=== PATIENT | female | born 1960 | race Caucasian/White ===

== ENCOUNTER 2016-05-17 09:19 | Emergency (ER) | payer BC, OTHER ==
[2016-05-17 10:14] VITALS: BP 122/68
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
== END 2016-05-17 10:13 | disposition home or self-care (01) ==
LOC: ED 09:19
DX: R11.0 Nausea (principal); R51 Headache; M25.60 Stiffness of unspecified joint, not elsewhere classified; Z04.1 Encounter for examination and observation following transport accident
CPT/HCPCS: 93005; 99282

== ENCOUNTER 2018-06-02 07:49 | Emergency (ER) | payer OTHER ==
[2018-06-02 08:01] VITALS: BP 172/90
--- NOTE | 2018-06-02 08:37 | UC ---
Minor Trauma HPI - HPI Summary HPI Summary: Patient presents to urgent care status post a fall this morning. Patient states she was inside tripped over an rock marbella bucket she had put out last night. Pt states she struck her left upper leg, left frontal area, and left wrist. No LOC No blood HEENT. No cp, sob, abd pain. No n/v/d. Pt states took Motrin this am and applied ice. PT states progressive discomfort left frontal area and left hip. No difficulty with ambulation. Did not break glasses when fall. No vision changes. Pt with pain left wrist with movement. No shoulder, elbow pain. No hand pain Pt's medications reviewed this visit - History of Current Complaint Chief Complaint: UCUpperExtremity Stated Complaint: WRIST INJURY Time Seen by Provider: 06/02/18 08:01 Hx Obtained From: Patient Onset/Duration: Sudden Onset Severity Initially: Mild Severity Currently: Mild Pain Intensity: 2 - Allergies/Home Medications Allergies/Adverse Reactions: Allergies Allergy/AdvReac Type Severity Reaction Status Date / Time No Known Allergies Allergy Verified 06/02/18 08:01 Home Medications: Home Medications Metoprolol Tartrate TAB* [Lopressor TAB*] 25 mg PO DAILY 06/02/18 [History Confirmed 06/02/18] Sertraline* [Zoloft*] 50 mg PO BEDTIME 06/02/18 [History Confirmed 06/02/18] metFORMIN* [Glucophage 500 MG TAB *] 500 mg PO DAILY 06/02/18 [History Confirmed 06/02/18] PMH/Surg Hx/FS Hx/Imm Hx Previously Healthy: Yes - Surgical History Surgical History: Yes Surgery Procedure, Year, and Place: c-sectx2 - Family History Known Family History: Positive: Non-Contributory - Social History Occupation: Employed Full-time - [employer] Lives: With Family Alcohol Use: Rare Substance Use Type: None Smoking Status (MU): Never Smoked Tobacco Review of Systems All Other Systems Reviewed And Are Negative: Yes Constitutional: Positive: Fever Skin: Positive: Bruising - left forehead, left upper leg ENT: Positive: Other - left frontal area Musculoskeletal: Positive: Other: - left leg, left wrist Physical Exam - Summary Physical Exam Summary: Vital Signs Reviewed: Yes A+Ox3, no distress Eyes: Conjunctiva Clear, JERRY. EOM intact and full. no pain with palp of orbital rim. ENT: Hearing grossly normal TM x 2 clear, no hemotymp, no septal hematoma no broken teeth, mmoist, uvula midline, no exudate, no erythema. pt with mild ecchymosis left frontal area - no crepitus, no open wound, mild pain with palp Neck: Positive: Supple Respiratory: Positive: No respiratory distress, No accessory muscle use + CTA throughout no w/r Cardiovascular: RRR nl s1, s2 no m/r CBT <2 sec abd soft + BS nt/nd no guarding, no distension Musculoskeletal Exam: + abduct shoulder + flex/ext elbow + pronate/supinate; + flex/ext wrist with pain dorsum, mid wrist - no crepitus. Pt with slight click with pronation lateral wrist. no pain carpals. metacarpals, ambulatory without difficulty + flex/ext knee. ankle Neurological: Positive: Alert, + sensation throughout Psychological: Positive: Normal Response To Family Skin: Positive: no rash, + left frontal Triage Information Reviewed: Yes Vital Signs: Initial Vital Signs Temp 98.0 F 06/02/18 07:55 Pulse 71 06/02/18 07:55 Resp 16 06/02/18 07:55 BP 172/90 06/02/18 07:55 Pulse Ox 98 06/02/18 07:55 Diagnostics - Radiology No standard instances Radiology Interpretation Completed By: Radiologist - Patient Name: AN BUI Medical Record#: [id number] Ordering Physician: Yana Contreras MD Acct.#: [id number] : 1960 Age: 58 Sex: F Location: [facility] Exam Date: 06/02/18819 ADM Status: REG ER Order Information: WRIST LEFT 3+ VWS Accession Number: [id number] CPT: 87998 HISTORY: fall, pain dorsum, mid wrist COMPARISONS : None VIEWS: 3 , Frontal, lateral, and oblique views of the left wrist FINDINGS: BONE DENSITY: Normal. BONES: There is questionable nondisplaced fracture of the dorsal aspect of the proximal carpal row on lateral view. JOINTS: There is mild third MTP osteoarthritis. ALIGNMENT: There is no dislocation. SOFT TISSUES: Unremarkable. OTHER FINDINGS: None. IMPRESSION: QUESTIONABLE AVULSION FRACTURE OF THE DORSAL ASPECT OF THE PROXIMAL CARPAL ROW. < Electronically signed by Russell Hernandez MD in OV> 06/02/18838 Dictated By: Russell Hernandez MD Dictated Date/Time: 06/02/18838 Transcribed Date/ Time: 06/02/18837 Copy to: CC:Yana Contreras MD; Precious Rangel MD Imaging - [facility] Imaging - [facility] Imaging - [facility] [address] [address] ph [phone]) ph ([phone]) ph ([phone]) This report is only to be considered final once signed by the Provider(s ) as displayed in the "<Electronically Signed by >" field (s). Absence of a signature indicates the report is in a draft status and still needs to be finalized. In the event this document was created by someone other than the signing Provider, the individual initiating the document will be listed in the "Entered by:" or "Dictated by:" ocampo. 1 of 1 Re-Evaluation - Re-Evaluation First Eval Comment: reviewed imaging with pt. cock up splint. motrin/apap. ice. elevate. anticipate increased pain. f/u with ortho. return precautions. pt comfortable and in agreement with plan Minor Trauma Course/Dx - Course Course Of Treatment: Patient presents to urgent care status post mechanical trip and fall this morning. Patient with pain in her left wrist, left frontal area of her forehead, and left lateral hip. Patient did not lose consciousness. Patient does have small ecchymosis to the left frontal area. No open wounds. No crepitus. Patient has discomfort in her left wrist mid dorsum. No edema. Patient with slight click with pronation. Patient ambulatory with range of motion of her hips and knees. Patient did take Motrin. Ice applied. Patient is right-hand dominant. Discussed with patient at length regarding head injuries and concussion. Patient did not lose consciousness. Is not nauseous or vomiting. No she confused. Patient is not anticoagulated. At this time we'll defer imaging brain imaging. We will image her left wrist. Discussed with patient Motrin/Tylenol. Ice. Elevate. Patient comfortable in agreement with plan. Pt's BP elevated - discomfort - Differential Dx/Diagnosis Provider Diagnosis: Left wrist sprain, Contusion of left temporofrontal scalp, Fall, Avulsion fracture of wrist Discharge - Sign-Out/Discharge Documenting (check all that apply): Patient Departure All imaging exams completed and their final reports reviewed: Yes - Discharge Plan Condition: Stable Disposition: HOME Patient Education Materials: Contusion in Adults (ED), Wrist Sprain (ED), Hematoma (ED), Avulsion Fracture (ED) Forms: *Gen. Provider Communication Referrals: Kurt Melara MD [Medical Doctor] - Precious Rangel MD [Primary Care Provider] - Additional Instructions: - wear splint for comfort and support -apply ice (20 min at a time) every 2-3 hours for the next 2 days --Okay to alternate ibuprofen (Advil, Motrin) and Tylenol every 3 hours for pain. Take with food. Do NOT take for more than 4-5 days. - Contact the orthopedic group to schedule a follow-up appointment for your wrist - Anticipate increased pain over then next 1-2 days. This is normal following an injury / fall. If you develop increased or uncontrolled pain, vision changes , vomiting it is recommended you go to the emergency department for further evaluation and treatment. As discussed - the doctor does not think you have a concussion at this time. However, symptoms can develop. If you have ANY concerns, contact your doctor or go to the emergency department for further evaluation. -Contact the orthopedic provider to schedule a follow-up appointment. . Contact your doctor or return with questions or concerns - Billing Disposition and Condition Condition: STABLE Disposition: Home
== END 2018-06-02 09:00 | disposition home or self-care (01) ==
LOC: UCEAST 07:49
DX: S63.502A Unspecified sprain of left wrist, initial encounter (principal); S00.03XA Contusion of scalp, initial encounter; W18.09XA Striking against other object with subsequent fall, initial encounter; Y92.9 Unspecified place or not applicable
CPT/HCPCS: 99213; G0463

== ENCOUNTER 2020-12-02 18:17 | Inpatient (IN) ==
[2020-12-02] MEDS ORDERED: Heparin - STEMI 5,000 UNITS/ML 1 ml VIAL IV ONE ×2 (18:23→18:25)
[2020-12-02] MEDS ORDERED: Morphine 4 MG/ML VIAL (1 ml) ONE ×2 (18:25→18:33)
[2020-12-02 18:32] LABS: ABS Basophils 0.1 10^3/ul (0-0.2); ABS Eosinophils 0.3 10^3/ul (0-0.6); ABS Monocytes 0.6 10^3/ul (0-0.8); ABS Neutrophils 7.4 10^3/ul (1.5-7.7); Eosinophil % 2.5 %; Hematocrit 43 % (35-47); Hemoglobin 14.3 g/dL (12.0-16.0); Lymphocyte % 26.2 %; Mean Corpuscular HGB Conc 33 g/dL (31-36); Mean Corpuscular Hemoglobin 30 pg (27-31); Mean Corpuscular Volume 89 fL (80-97); Mean Platelet Volume 7.4 fL (7.4-10.4); Nucleated Red Blood Cells % 0.1; Platelet Count 330 10^3/uL (150-450); Red Blood Count 4.86 10^6 /uL (3.70-4.87); Red Cell Distribution Width 14 % (10-15); White Blood Count 11.4 10^3/uL (3.5-10.8)
[2020-12-02] MEDS ORDERED: Morphine 4 MG/ML VIAL (1 ml) IV ONE (18:39)
[2020-12-02 18:52] LABS: ALT 29 U/L (7-52); AST 37 U/L (13-39); Albumin 4.9 g/dL (3.2-5.2); Albumin/Globulin Ratio 1.4 (1-3); Alkaline Phosphatase 48 U/L (35-149); Anion Gap 13 mmol/L (2-11); Blood Urea Nitrogen 26 mg/dL (6-24); CO2 Carbon Dioxide 20 mmol/L (22-32); Calcium 11.1 mg/dL (8.6-10.3); Chloride 103 mmol/L (101-111); EGFR Non-African American 26.5 (>60); Globulin 3.6 g/dL (2-4); Glucose 155 mg/dL (70-100); LDL Cholesterol Direct 141 mg/dL; Potassium 3.9 mmol/L (3.5-5.0); Sodium 136 mmol/L (135-145); Total Protein 8.5 g/dL (6.4-8.9)
[2020-12-02 19:07] LABS: Troponin I 2.35 ng/mL (<0.03)
[2020-12-02] MEDS ORDERED: Al Hydrox/Mg Hydrox/Simet LIQ 30 ML UDC PO PRN (21:34)
[2020-12-02] MEDS ORDERED: Ondansetron 4 mg VIAL 2 MG/ML 2 ml VIAL IV PRN (21:34)
[2020-12-02] MEDS ORDERED: Lactated Ringers 1000 ml BAG 1,000 ML IV ONE (21:40)
[2020-12-02] MEDS ORDERED: Dextrose 50% Syringe 50 ml 25 GM/50 ML SYRINGE IV PUSH PRN (21:57)
[2020-12-02] MEDS ORDERED: NS 0.9% 1000 ml BAG 1,000 ML IV SCH (22:15)
[2020-12-02] MEDS: Heparin 5000 UNITS/ML 1 mL VIAL SUBCUT SCH (22:29)
[2020-12-02 23:05] LABS: INR 9.23 (0.86-1.15)
[2020-12-02] MEDS ORDERED: Lactated Ringers 500 ml BAG 500 ML IV SCH (23:45)
[2020-12-03 05:34] LABS: ABS Eosinophils 0.2 10^3/ul (0-0.6); ABS Lymphocytes 1.8 10^3/ul (1.0-4.8); ABS Monocytes 0.7 10^3/ul (0-0.8); ABS Neutrophils 5.8 10^3/ul (1.5-7.7); Eosinophil % 1.9 %; Hematocrit 37 % (35-47); Hemoglobin 12.4 g/dL (12.0-16.0); Lymphocyte % 21.1 %; Mean Corpuscular HGB Conc 33 g/dL (31-36); Mean Corpuscular Hemoglobin 30 pg (27-31); Mean Corpuscular Volume 90 fL (80-97); Mean Platelet Volume 7.6 fL (7.4-10.4); Nucleated Red Blood Cells % 0.1; Platelet Count 227 10^3/uL (150-450); Red Blood Count 4.17 10^6 /uL (3.70-4.87); Red Cell Distribution Width 14 % (10-15); White Blood Count 8.4 10^3/uL (3.5-10.8)
[2020-12-03] MEDS: Heparin 5000 UNITS/ML 1 mL VIAL SUBCUT SCH ×3 (05:34→20:19)
[2020-12-03 05:42] LABS: ALT 33 U/L (7-52); AST 120 U/L (13-39); Albumin 4.1 g/dL (3.2-5.2); Albumin/Globulin Ratio 1.6 (1-3); Alkaline Phosphatase 39 U/L (35-149); Anion Gap 8 mmol/L (2-11); Blood Urea Nitrogen 22 mg/dL (6-24); CO2 Carbon Dioxide 23 mmol/L (22-32); Calcium 9.4 mg/dL (8.6-10.3); Chloride 104 mmol/L (101-111); Cholesterol 196 mg/dL; EGFR African American 53.5 (>60); EGFR Non-African American 44.2 (>60); Globulin 2.6 g/dL (2-4); Glucose 122 mg/dL (70-100); HDL Cholesterol 25.2 mg/dL; Potassium 3.8 mmol/L (3.5-5.0); Sodium 135 mmol/L (135-145); Total Protein 6.7 g/dL (6.4-8.9); Triglycerides 422 mg/dL
[2020-12-03 05:46] LABS: Troponin I 34.84 ng/mL (<0.03)
[2020-12-03 05:58] LABS: LDL Cholesterol Direct 108 mg/dL
[2020-12-03 11:24] LABS: Troponin I 33.73 ng/mL (<0.03)
[2020-12-04 06:00] LABS: Calcium 9.5 mg/dL (8.6-10.3); EGFR African American 54.6 (>60); EGFR Non-African American 45.1 (>60); Magnesium 1.9 mg/dL (1.9-2.7); Phosphorus 3.2 mg/dL (2.5-5.0); Potassium 3.6 mmol/L (3.5-5.0)
[2020-12-04 08:06] VITALS: BP 118/62
[2020-12-04] MEDS: Heparin 5000 UNITS/ML 1 mL VIAL SUBCUT SCH (08:11)
[2020-12-04 09:28] LABS: INR 1.12 (0.86-1.15)
[2020-12-05] MEDS ORDERED: PRAVASTATIN 20 MG PO SCH (08:30)
== END 2020-12-04 13:41 | disposition home or self-care (01) | DRG 247 ==
LOC: ED 18:17 → CHICATH 19:00 → ICU 19:00 → MEDTELE 12-03 17:26
PROVIDERS: ADMIT Hospitalist; ATTEND Hospitalist

== ENCOUNTER 2021-01-14 18:47 | Observation (INO) ==
[2021-01-14 20:24] LABS: ABS Eosinophils 0.1 10^3/ul (0-0.6); ABS Lymphocytes 1.3 10^3/ul (1.0-4.8); ABS Monocytes 0.4 10^3/ul (0-0.8); ABS Neutrophils 5.7 10^3/ul (1.5-7.7); Eosinophil % 1.9 %; Hematocrit 44 % (35-47); Hemoglobin 15.3 g/dL (12.0-16.0); Lymphocyte % 16.9 %; Mean Corpuscular HGB Conc 35 g/dL (31-36); Mean Corpuscular Hemoglobin 30 pg (27-31); Mean Corpuscular Volume 88 fL (80-97); Platelet Count 311 10^3/uL (150-450); Red Blood Count 5.02 10^6 /uL (3.70-4.87); Red Cell Distribution Width 13 % (10-15); White Blood Count 7.5 10^3/uL (3.5-10.8)
[2021-01-14 20:39] LABS: ALT 29 U/L (7-52); AST 27 U/L (13-39); Albumin 5.2 g/dL (3.2-5.2); Albumin/Globulin Ratio 1.3 (1-3); Alkaline Phosphatase 75 U/L (35-149); Anion Gap 7 mmol/L (2-11); Blood Urea Nitrogen 16 mg/dL (6-24); CO2 Carbon Dioxide 27 mmol/L (22-32); Calcium 10.7 mg/dL (8.6-10.3); Chloride 99 mmol/L (101-111); EGFR African American 64.3 (>60); EGFR Non-African American 53.1 (>60); Globulin 4.1 g/dL (2-4); Glucose 94 mg/dL (70-100); Potassium 4.2 mmol/L (3.5-5.0); Sodium 133 mmol/L (135-145); Total Protein 9.3 g/dL (6.4-8.9)
[2021-01-14 20:56] LABS: HCG Pregnancy 2.71 mIU/mL
[2021-01-14 21:01] LABS: Troponin I 2.41 ng/mL (<0.03)
[2021-01-14] MEDS ORDERED: Iodixanol (CONTRAST) 320 MG/ML 100 ML SDV IV ONE (22:03)
[2021-01-15] MEDS ORDERED: Pravastatin 40 mg TAB (NF) PO ONE (02:01)
[2021-01-15] MEDS ORDERED: Pravastatin 20 mg TAB (NF) PO ONE (02:15)
[2021-01-15] MEDS ORDERED: Vancomycin 1,000 MG in NS 0.9% 250 ml 250 ML IVPB ONE (03:45)
[2021-01-15] MEDS ORDERED: Piperacillin/Tazobac ADVAN 3.375 GM in NS 0.9% 100 ml BAG 100 ML IV ONE (03:45)
[2021-01-15 04:31] LABS: C Reactive Protein 41.35 mg/L (<8.01)
[2021-01-15] MEDS ORDERED: Dextrose 50% Syringe 50 ml 25 GM/50 ML SYRINGE IV PUSH PRN (05:27)
[2021-01-15 08:34] LABS: Troponin I 2.12 ng/mL (<0.03)
[2021-01-15 08:49] LABS: Glucose 97 mg/dL (70-100)
[2021-01-15] MEDS ORDERED: Ondansetron 4 mg VIAL 2 MG/ML 2 ml VIAL IV PRN (13:06)
[2021-01-15] MEDS ORDERED: Ondansetron 4 mg VIAL 2 MG/ML 2 ml VIAL IV ONE (13:07)
[2021-01-15] MEDS: cefTRIAXone 1 gm/50 mL NS BAG 1 GM/50 ML BAG IVPB SCH (13:23)
[2021-01-15] MEDS: Senna TAB 8.6 mg TAB PO PRN (14:58)
[2021-01-15] MEDS: Azithromycin 500 mg/250 ml NS 500 MG/250 ML BAG IVPB SCH (14:59)
[2021-01-16 08:38] LABS: ABS Lymphocytes 1.2 10^3/ul (1.0-4.8); ABS Monocytes 0.6 10^3/ul (0-0.8); ABS Neutrophils 5.3 10^3/ul (1.5-7.7); Eosinophil % 0.4 %; Hematocrit 38 % (35-47); Lymphocyte % 16.6 %; Mean Corpuscular HGB Conc 34 g/dL (31-36); Mean Corpuscular Hemoglobin 30 pg (27-31); Mean Corpuscular Volume 88 fL (80-97); Platelet Count 227 10^3/uL (150-450); Red Cell Distribution Width 13 % (10-15); White Blood Count 7.1 10^3/uL (3.5-10.8)
[2021-01-16 08:55] LABS: Anion Gap 7 mmol/L (2-11); Blood Urea Nitrogen 10 mg/dL (6-24); CO2 Carbon Dioxide 28 mmol/L (22-32); Calcium 9.5 mg/dL (8.6-10.3); Chloride 96 mmol/L (101-111); EGFR African American 56.7 (>60); EGFR Non-African American 46.9 (>60); Glucose 98 mg/dL (70-100); Magnesium 1.8 mg/dL (1.9-2.7); Potassium 3.7 mmol/L (3.5-5.0); Sodium 131 mmol/L (135-145)
[2021-01-16] MEDS ORDERED: CMCS: Pravastatin 20 mg TAB (NF) PO SCH (09:00)
[2021-01-16 09:05] LABS: Troponin I 2.08 ng/mL (<0.03)
[2021-01-16] MEDS ORDERED: Magnesium Sulfate IV 3 GM in NS 0.9% 100 ml BAG 100 ML IVPB ONE (09:30)
[2021-01-16] MEDS: Senna TAB 8.6 mg TAB PO PRN (09:57)
[2021-01-16] MEDS: Azithromycin 500 mg/250 ml NS 500 MG/250 ML BAG IVPB SCH (14:52)
[2021-01-16] MEDS: cefTRIAXone 1 gm/50 mL NS BAG 1 GM/50 ML BAG IVPB SCH (16:08)
[2021-01-16 19:54] VITALS: BP 117/69
== END 2021-01-16 18:50 | disposition home or self-care (01) ==
LOC: MED 18:47 → ED 18:47 → MERGE 01-15 04:54 → SUATTDRO 01-15 04:54 → MED 01-15 12:09
PROVIDERS: ADMIT Internal Medicine; ATTEND Internal Medicine